=== PATIENT | female | born 2000 | race Asian ===

== ENCOUNTER 2019-06-12 22:55 | Emergency (ER) | payer OTHER ==
[2019-06-13] MEDS ORDERED: Ibuprofen TAB* 400 MG PO ONE (01:40)
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
[2019-06-13 02:45] VITALS: BP 129/62
== END 2019-06-13 02:45 | disposition home or self-care (01) ==
LOC: ED 22:55
DX: M25.512 Pain in left shoulder (principal); M54.5 Low back pain; V03.90XA Pedestrian on foot injured in collision with car, pick-up truck or van, unspecified whether traffic or nontraffic accident, initial encounter; Y93.01 Activity, walking, marching and hiking; Y92.410 Unspecified street and highway as the place of occurrence of the external cause
CPT/HCPCS: 99282; A9270-GY